=== PATIENT | female | born 1945 | race Caucasian/White ===

== ENCOUNTER 2016-12-07 15:29 | Emergency (ER) | payer MEDICARE ==
[2016-12-07] MEDS ORDERED: HYDROCODONE/APAP 5/325MG TABLET PO ONE (15:57)
--- NOTE | 2016-12-07 17:45 | Emergency Department Record ---
History of Present Illness - General Chief complaint: Pain Stated complaint: RT SIDE HIP PAIN Time Seen by Provider: 12/07/16 15:40 Source: Patient Mode of Arrival: Wheelchair Limitations: No limitations - History of Present Illness Initial comments: pt twisted r leg injuring hip causing pain and unable to bear weight. Complaint: Extremity pain, Joint pain Onset/Timin -: Hour(s) Location: Right, Other Severity scale (1-10): 9 Quality: Sharp Consistency: Constant Improves with: Nothing Worsens with: Walking, Weight bearing, Other - Related Data Home Medications Medication Instructions Recorded Confirmed Last Taken Metoprolol Succinate 50 mg PO QD tab 12/08/15 12/07/16 Unknown Pravastatin Sodium 20 mg PO QD tab 12/08/15 12/07/16 Unknown Previous Rx's Medication Instructions Recorded Hydrocodone/Acetaminophen [[place] 0.5 - 1 tab PO TID PRN #10 tab 12/07/16 5mg/325mg] Allergies Allergy/AdvReac Type Severity Reaction Status Date / Time azithromycin Allergy FLU LIKE Verified 12/07/16 15:46 SYMPTOMS Travel Screening - Travel/Exposure Within Last 30 Days Have you traveled within the last 30 days?: No Review of Systems Reviewed: No additional complaints except as noted below Constitutional: Reports: As per HPI. Denies: Chills, Fever, Malaise, Night sweats, Weakness, Weight change Eyes: Reports: As per HPI. Denies: Eye discharge, Eye pain, Photophobia, Vision change ENT: Reports: As per HPI. Denies: Congestion, Dental pain, Ear pain, Epistaxis , Hearing loss, Throat pain Respiratory: Reports: As per HPI. Denies: Cough, Dyspnea, Hemoptysis, Stridor, Wheezes Cardiovascular: Reports: As per HPI. Denies: Arrhythmia, Chest pain, Dyspnea on exertion, Edema, Murmurs, Orthopnea, Palpitations, Paroxysmal nocturnal dyspnea, Rheumatic Fever, Syncope Endocrine: Reports: As per HPI. Denies: Fatigue, Heat or cold intolerance, Polydipsia, Polyuria Gastrointestinal: Reports: As per HPI. Denies: Abdominal pain, Constipation, Diarrhea, Hematemesis, Hematochezia, Melena, Nausea, Vomiting Genitourinary: Reports: As per HPI. Denies: Abnormal menses, Discharge, Dyspareunia, Dysuria, Frequency, Hematuria, Incontinence, Retention, Urgency Musculoskeletal: Reports: As per HPI. Denies: Arthralgia, Back pain, Gout, Joint swelling, Myalgia, Neck pain Skin: Reports: As per HPI. Denies: Bruising, Change in color, Change in hair/ nails, Lesions, Pruritus, Rash Neurological: Reports: As per HPI. Denies: Abnormal gait, Confusion, Headache, Numbness, Paresthesias, Seizure, Tingling, Tremors, Vertigo, Weakness Psychiatric: Reports: As per HPI. Denies: Anxiety, Auditory hallucinations, Depression, Homicidal thoughts, Suicidal thoughts, Visual hallucinations Hematological/Lymphatic: Reports: As per HPI. Denies: Anemia, Blood Clots, Easy bleeding, Easy bruising, Swollen glands Past Medical History - SOCIAL HISTORY Smoking Status: Former smoker Alcohol Use: None Drug Use: None - RESPIRATORY Hx Respiratory Disorders: No - CARDIOVASCULAR Hx Cardio Disorders: Yes Hx Hypertension: Yes - NEURO Hx Neuro Disorders: No - GI Hx GI Disorders: No - Hx Genitourinary Disorders: No - ENDOCRINE Hx Endocrine Disorders: No - MUSCULOSKELETAL Hx Musculoskeletal Disorders: No - PSYCH Hx Psych Problems: No - HEMATOLOGY/ONCOLOGY Hx Hematology/Oncology Disorders: No Family Medical History Any Significant Family History?: No Physical Exam - General General Appearance: Alert, Oriented x3, Cooperative, Mild distress - Head Head exam: Normal inspection - Eye Eye exam: Normal appearance, PERRL, EOMI Pupils: Normal accommodation - ENT ENT exam: Normal exam, Mucous membranes moist, Normal external ear exam, Normal orophraynx Ear exam: Normal external inspection. negative: External canal tenderness Nasal Exam: Normal inspection. negative: Discharge, Sinus tenderness Mouth exam: Normal external inspection, Tongue normal Teeth exam: Normal inspection. negative: Dental caries Throat exam: Normal inspection. negative: Tonsillar erythema, Tonsillar exudate - Neck Neck exam: Normal inspection, Full ROM. negative: Tenderness - Respiratory Respiratory exam: Normal lung sounds bilaterally. negative: Respiratory distress - Cardiovascular Cardiovascular Exam: Regular rate, Normal rhythm, Normal heart sounds - GI/Abdominal GI/Abdominal exam: Soft, Normal bowel sounds. negative: Tenderness - Rectal Rectal exam: Deferred - exam: Deferred - Extremities Extremities exam: Normal inspection, Normal capillary refill, Tenderness. negative: Full ROM Image of Full Body: 1 - tender - Back Back exam: Reports: Normal inspection, Full ROM. Denies: Muscle spasm, Rash noted, Tenderness - Neurological Neurological exam: Alert, CN II-XII intact, Normal gait, Oriented X3 - Psychiatric Psychiatric exam: Normal affect, Normal mood - Skin Skin exam: Dry, Intact, Normal color, Warm Course Vital Signs 12/07/16 15:37 Temperature 98.2 F Pulse Rate 78 Respiratory 18 Rate Blood Pressure 154/74 Pulse Ox 96 Disposition Disposition: Discharge Clinical Impression: Sprain of right hip Qualifiers: Encounter type: initial encounter Qualified Code(s): S73.101A - Unspecified sprain of right hip, initial encounter Disposition: Home, Self-Care Condition: (1) Good Instructions: Hip Sprain (ED) Additional Instructions: follow up with family doctor. return sooner if worse. ice to joint.use walker if needed Prescriptions: Hydrocodone/Acetaminophen [[place] 5mg/325mg] 0.5 - 1 tab PO TID PRN #10 tab PRN Reason: Pain - General Forms: Patient Portal Access
--- NOTE | 2016-12-09 14:25 | RADIOLOGY REPORT ---
EXAM: RIGHT HIP, FOUR VIEWS HISTORY: TWISTING INJURY RIGHT HIP, RIGHT HIP PAIN. TECHNIQUE: Four views of the right hip were obtained. Comparison: None. FINDINGS: Severe osteoarthritic change of the right femoroacetabular joint with joint space narrowing and large osteophytes. No acute fracture. IMPRESSION: 1. NO ACUTE OSSEOUS ABNORMALITY OF THE RIGHT HIP. 2. SEVERE OSTEOARTHRITIC CHANGE OF THE RIGHT FEMOROACETABULAR JOINT. JOB NUMBER: [id number] MTDD
== END 2016-12-07 18:00 | disposition home or self-care (01) ==
LOC: ER 15:29
DX: S73.101A Unspecified sprain of right hip, initial encounter (principal); X50.1XXA Overexertion from prolonged static or awkward postures, initial encounter
CPT/HCPCS: 99283

== ENCOUNTER 2017-02-25 15:38 | Emergency (ER) | payer MEDICARE ==
[2017-02-25] MEDS ORDERED: 0.9 % SODIUM CHLORIDE 1,000 ML BAG IV ONE (16:06)
[2017-02-25] MEDS ORDERED: ONDANSETRON HCL IV 4 MG/2 ML VIAL IV ONE (16:06)
[2017-02-25 16:09] LABS: INFLUENZA A NEGATIVE (NEGATIVE); INFLUENZA B NEGATIVE (NEGATIVE)
[2017-02-25 16:15] LABS: BASO % 0.2 % (0-6); EOS % 0.1 % (0-6); GRAN % 76.2 % (47-80); HEMATOCRIT 33.3 % (35.0-47.0); HEMOGLOBIN 11.6 gm/dl (11.6-16.0); LYMPH % 15.3 % (16-45); MEAN CELL VOLUME 87.6 fl (81-97); MEAN CORPUSCULAR HEMOGLOBIN 30.5 pg (27-33); MEAN CORPUSCULAR HGB CONC 34.8 g/dl (32-36); MEAN PLATELET VOLUME 9.4 fl (7.4-10.4); MONO % 8.2 % (0-9); PLATELET COUNT 270 K/uL (130-400); RED CELL DISTRIBUTION WIDTH 12.4 % (11.5-14.5); WHITE BLOOD COUNT W/O DIFF 15.7 K/uL (4.2-12.2)
[2017-02-25 16:27] LABS: ALB/GLOB RATIO 1.1 (1.1-1.8); ALBUMIN 4.2 gm/dL (3.5-5.0); ALKALINE PHOSPHATASE 83 U/L (38-126); ALT/SGPT 21 U/L (9-52); ANION GAP 14.7 (7-16); AST/SGOT 23 U/L (14-36); BILIRUBIN,TOTAL 1.73 mg/dL (0.2-1.3); BLOOD UREA NITROGEN 16 mg/dL (7-17); CARBON DIOXIDE 19.3 mmol/L (22-30); CREATININE 0.7 mg/dL (0.52-1.04); EST GLOMERULAR FILTRATION RATE > 60 ml/min; GLUCOSE,RANDOM 149 mg/dL (70-110); LIPASE 52 U/L (23-300); TOTAL PROTEIN 8.1 gm/dL (6.3-8.2)
--- NOTE | 2017-02-25 16:54 | Emergency Department Record ---
History of Present Illness - General Chief complaint: Vomiting Stated complaint: VOMITING,COUGH Time Seen by Provider: 02/25/17 16:05 Source: Patient Mode of Arrival: Ambulatory Limitations: No limitations - History of Present Illness Initial comments: pt has been vomiting and having diarrhea for2 days. she also has congestion and a cough. she has no abd pain MD complaint: Diarrhea, Nausea, Vomiting Onset/Timin -: Days(s) Description of Vomiting: Other Improves with: None Worsens with: Eating Context: Other Associated Symptoms: Cough, Nausea/vomiting - Related Data Home Medications Medication Instructions Recorded Confirmed Last Taken Metoprolol Succinate 50 mg PO QD tab 12/08/15 02/25/17 02/24/17 Pravastatin Sodium 20 mg PO QD tab 12/08/15 02/25/17 02/24/17 Previous Rx's Medication Instructions Recorded Ciprofloxacin 500 mg PO BID #14 ml 02/25/17 Promethazine HCl [Phenergan] 12.5 mg PO BID #10 tablet 02/25/17 Allergies Allergy/AdvReac Type Severity Reaction Status Date / Time azithromycin Allergy FLU LIKE Verified 12/07/16 15:46 SYMPTOMS Travel Screening - Travel/Exposure Within Last 30 Days Have you traveled within the last 30 days?: No - Travel/Exposure Within Last Year Have you traveled outside the [place] in the last year?: No - Additonal Travel Details Have you been exposed to anyone with a communicable illness?: No - Travel Symptoms Symptom Screening: None Review of Systems Reviewed: No additional complaints except as noted below Constitutional: Reports: As per HPI. Denies: Chills, Fever, Malaise, Night sweats, Weakness, Weight change Eyes: Reports: As per HPI. Denies: Eye discharge, Eye pain, Photophobia, Vision change ENT: Reports: As per HPI. Denies: Congestion, Dental pain, Ear pain, Epistaxis , Hearing loss, Throat pain Respiratory: Reports: As per HPI. Denies: Cough, Dyspnea, Hemoptysis, Stridor, Wheezes Cardiovascular: Reports: As per HPI. Denies: Arrhythmia, Chest pain, Dyspnea on exertion, Edema, Murmurs, Orthopnea, Palpitations, Paroxysmal nocturnal dyspnea, Rheumatic Fever, Syncope Endocrine: Reports: As per HPI. Denies: Fatigue, Heat or cold intolerance, Polydipsia, Polyuria Gastrointestinal: Reports: As per HPI. Denies: Abdominal pain, Constipation, Diarrhea, Hematemesis, Hematochezia, Melena, Nausea, Vomiting Genitourinary: Reports: As per HPI. Denies: Abnormal menses, Discharge, Dyspareunia, Dysuria, Frequency, Hematuria, Incontinence, Retention, Urgency Musculoskeletal: Reports: As per HPI. Denies: Arthralgia, Back pain, Gout, Joint swelling, Myalgia, Neck pain Skin: Reports: As per HPI. Denies: Bruising, Change in color, Change in hair/ nails, Lesions, Pruritus, Rash Neurological: Reports: As per HPI. Denies: Abnormal gait, Confusion, Headache, Numbness, Paresthesias, Seizure, Tingling, Tremors, Vertigo, Weakness Psychiatric: Reports: As per HPI. Denies: Anxiety, Auditory hallucinations, Depression, Homicidal thoughts, Suicidal thoughts, Visual hallucinations Hematological/Lymphatic: Reports: As per HPI. Denies: Anemia, Blood Clots, Easy bleeding, Easy bruising, Swollen glands Past Medical History - SOCIAL HISTORY Smoking Status: Former smoker Alcohol Use: None Drug Use: None - RESPIRATORY Hx Respiratory Disorders: No - CARDIOVASCULAR Hx Cardio Disorders: Yes Hx Hypertension: Yes - NEURO Hx Neuro Disorders: No - GI Hx GI Disorders: No - Hx Genitourinary Disorders: No - ENDOCRINE Hx Endocrine Disorders: No - MUSCULOSKELETAL Hx Musculoskeletal Disorders: No - PSYCH Hx Psych Problems: No - HEMATOLOGY/ONCOLOGY Hx Hematology/Oncology Disorders: No Family Medical History Any Significant Family History?: No Physical Exam - General General Appearance: Alert, Oriented x3, Cooperative, Mild distress - Head Head exam: Normal inspection - Eye Eye exam: Normal appearance, PERRL, EOMI Pupils: Normal accommodation - ENT ENT exam: Normal exam, Mucous membranes dry, Normal external ear exam, Normal orophraynx Ear exam: Normal external inspection. negative: External canal tenderness Nasal Exam: Normal inspection. negative: Discharge, Sinus tenderness Mouth exam: Normal external inspection, Tongue normal Teeth exam: Normal inspection. negative: Dental caries Throat exam: Normal inspection. negative: Tonsillar erythema, Tonsillar exudate - Neck Neck exam: Normal inspection, Full ROM. negative: Tenderness - Respiratory Respiratory exam: Normal lung sounds bilaterally. negative: Respiratory distress - Cardiovascular Cardiovascular Exam: Normal rhythm, Normal heart sounds, Tachycardia - GI/Abdominal GI/Abdominal exam: Soft, Normal bowel sounds. negative: Tenderness - Rectal Rectal exam: Deferred - exam: Deferred - Extremities Extremities exam: Normal inspection, Full ROM, Normal capillary refill. negative: Tenderness - Back Back exam: Reports: Normal inspection, Full ROM. Denies: Muscle spasm, Rash noted, Tenderness - Neurological Neurological exam: Alert, CN II-XII intact, Normal gait, Oriented X3 - Psychiatric Psychiatric exam: Normal affect, Normal mood - Skin Skin exam: Dry, Intact, Normal color, Warm Course Vital Signs 02/25/17 15:50 Temperature 98.6 F Pulse Rate 120 H Respiratory 16 Rate Blood Pressure 124/73 Pulse Ox 97 Medical Decision Making - Lab Data Result diagrams: 02/25/17 16:08 02/25/17 16:08 Lab Results 02/25/17 02/25/17 02/25/17 Range/Units 15:45 16:08 16:08 WBC 15.7 H (4.2-12.2) K/uL RBC 3.80 (3.80-5.40) M/uL Hgb 11.6 (11.6-16.0) gm/dl Hct 33.3 L (35.0-47.0) % MCV 87.6 (81-97) fl MCH 30.5 (27-33) pg MCHC 34.8 (32-36) g/dl RDW 12.4 (11.5-14.5) % Plt Count 270 (130-400) K/uL MPV 9.4 (7.4-10.4) fl Gran % 76.2 (47-80) % Lymphocytes % 15.3 L (16-45) % Monocytes % 8.2 (0-9) % Eosinophils % 0.1 (0-6) % Basophils % 0.2 (0-6) % Sodium 136 (136-145) mmol/L Potassium 3.4 L (3.5-5.1) mmol/L Chloride 102 (98-107) mmol/L Carbon Dioxide 19.3 L (22-30) mmol/L Anion Gap 14.7 (7-16) BUN 16 (7-17) mg/dL Creatinine 0.7 (0.52-1.04) mg/dL Estimated GFR > 60 ml/min Random Glucose 149 H (70-110) mg/dL Calcium 9.1 (8.5-10.1) mg/dL Total Bilirubin 1.73 H (0.2-1.3) mg/dL AST 23 (14-36) U/L ALT 21 (9-52) U/L Alkaline Phosphatase 83 (38-126) U/L Total Protein 8.1 (6.3-8.2) gm/dL Albumin 4.2 (3.5-5.0) gm/dL Globulin 3.9 (1.4-4.8) gm/dL Albumin/Globulin Ratio 1.1 (1.1-1.8) Lipase 52 (23-300) U/L Influenza Type A Ag Negative (NEGATIVE) Influenza Type B Ag Negative (NEGATIVE) Disposition Disposition: Discharge Clinical Impression: Pyelonephritis, Dehydration Vomiting Qualifiers: Vomiting type: unspecified Vomiting Intractability: intractable Nausea presence : with nausea Qualified Code(s): R11.2 - Nausea with vomiting, unspecified Diarrhea Qualifiers: Diarrhea type: unspecified type Qualified Code(s): R19.7 - Diarrhea, unspecified Disposition: Home, Self-Care Condition: (2) Stable Instructions: Acute Nausea and Vomiting (ED), Dehydration (ED), Acute Diarrhea (ED), Acute Pyelonephritis (ED) Additional Instructions: follow up with family doctor. return sooner if worse. push fluids. return if unable to keep antibiotics down. Prescriptions: Ciprofloxacin 500 mg PO BID #14 ml Promethazine HCl [Phenergan] 12.5 mg PO BID #10 tablet Forms: Patient Portal Access
[2017-02-25 17:43] LABS: URINE APPEARANCE CLEAR; URINE BILIRUBIN NEGATIVE (NEGATIVE); URINE BLOOD MODERATE (NEGATIVE); URINE COLOR YELLOW; URINE GLUCOSE (UA) NEGATIVE (NEGATIVE); URINE KETONE NEGATIVE (NEGATIVE); URINE LEUKOCYTE ESTERASE MODERATE (NEGATIVE); URINE NITRITE POSITIVE (NEGATIVE)
[2017-02-25 17:46] LABS: URINE BACTERIA 3+; URINE EPITHELIAL CELLS NONE SEEN (FEW)
[2017-02-25] MEDS ORDERED: CIPROFLOXACIN LACTATE/D5W 400 MG in DEXTROSE 1 BAG IVPB ONE (18:01)
--- NOTE | 2017-03-01 08:44 | RADIOLOGY REPORT ---
EXAM: CHEST, TWO VIEWS HISTORY: DIFFICULTY IN BREATHING. TECHNIQUE: Frontal and lateral views of the chest were performed. FINDINGS: The heart size is normal. The lungs are hyperinflated. No acute type infiltrate or pleural effusion. Minimal biapical pleural thickening. There is osteopenia. IMPRESSION: 1. HYPERINFLATED LUNGS. NO ACUTE TYPE INFILTRATE OR PLEURAL EFFUSION. 2. MINIMAL BIAPICAL PLEURAL THICKENING. JOB NUMBER: [id number] [facility]
== END 2017-02-25 19:28 | disposition home or self-care (01) ==
LOC: ER 15:38
DX: N10 Acute pyelonephritis (principal); E86.0 Dehydration; R11.2 Nausea with vomiting, unspecified; R19.7 Diarrhea, unspecified
CPT/HCPCS: 99284 ×2; 96365; 96375; 83690; 85025; 80053; 81001; 87400; 83880; 71020; J0744; J2405; J7030

== ENCOUNTER 2017-02-28 18:24 | Inpatient (IN) | payer MEDICARE ==
--- NOTE | 2017-02-28 18:56 | Emergency Department Record ---
History of Present Illness - General Chief Complaint: Difficulty Breathing Stated Complaint: CHRISSY,WEAKNESS,NOT EATING Time Seen by Provider: 02/28/17 18:48 Source: Patient Mode of Arrival: Wheelchair Limitations: No limitations - History of Present Illness Initial Comments: 71 yo female returns to ED for evaluation of shortness of breath, weakness, and cough symptoms. Patient was seen 3 days ago, diagnosed with "bladder infection " and started on antibiotics. Patient reports that her symptoms have not improved at all, and reports worsening weakness symptoms. Patient denies flank pain, neck pain, or headache symptoms. Patient reports history significant for HTN, on medication currently for her symptoms. MD Complaint: Cough Onset/Timin -: Days(s) Severity: Moderate Quality: Aching Consistency: Constant Improves With: Nothing Worsens With: Nothing Known History Of: Other Context: Recent illness Associated Symptoms: Cough, Orthopnia, Pain with inspiration Treatments Prior to Arrival: None - Related Data Home Oxygen Therapy: No Home Medications Medication Instructions Recorded Confirmed Last Taken Metoprolol Succinate 50 mg PO QD tab 12/08/15 02/28/17 02/24/17 Pravastatin Sodium 20 mg PO QD tab 12/08/15 02/28/17 02/24/17 Previous Rx's Medication Instructions Recorded Ciprofloxacin 500 mg PO BID #14 ml 02/25/17 Promethazine HCl [Phenergan] 12.5 mg PO BID #10 tablet 02/25/17 Allergies Allergy/AdvReac Type Severity Reaction Status Date / Time azithromycin Allergy FLU LIKE Verified 12/07/16 15:46 SYMPTOMS Travel Screening - Travel/Exposure Within Last 30 Days Have you traveled within the last 30 days?: No Review of Systems Constitutional: Reports: Chills, Malaise, Weakness. Denies: Fever, Night sweats Eyes: Denies: Eye discharge, Eye pain ENT: Denies: Congestion, Ear pain, Epistaxis Respiratory: Reports: Cough, Dyspnea. Denies: Hemoptysis, Stridor, Wheezes Cardiovascular: Denies: Chest pain, Dyspnea on exertion Endocrine: Denies: Fatigue, Heat or cold intolerance Gastrointestinal: Denies: Abdominal pain, Nausea, Vomiting Genitourinary: Denies: Frequency, Hematuria, Incontinence, Retention Musculoskeletal: Denies: Arthralgia, Back pain, Gout, Joint swelling Skin: Denies: Bruising, Change in color Neurological: Denies: Abnormal gait, Confusion, Headache, Numbness, Tingling, Tremors Psychiatric: Denies: Anxiety Hematological/Lymphatic: Denies: Anemia, Blood Clots Past Medical History - SOCIAL HISTORY Smoking Status: Former smoker - RESPIRATORY Hx Respiratory Disorders: No - CARDIOVASCULAR Hx Cardio Disorders: Yes Hx Hypertension: Yes - NEURO Hx Neuro Disorders: No - GI Hx GI Disorders: No - Hx Genitourinary Disorders: No - ENDOCRINE Hx Endocrine Disorders: No - MUSCULOSKELETAL Hx Musculoskeletal Disorders: No - PSYCH Hx Psych Problems: No - HEMATOLOGY/ONCOLOGY Hx Hematology/Oncology Disorders: No Family Medical History Any Significant Family History?: No Physical Exam - General General Appearance: Alert, Oriented x3, Cooperative, Moderate distress Limitations: No limitations - Head Head exam: Atraumatic, Normocephalic, Normal inspection Head exam detail: negative: Abrasion, Contusion, Rhodes's sign, General tenderness, Hematoma, Laceration - Eye Eye exam: Normal appearance. negative: Conjunctival injection, Periorbital swelling, Periorbital tenderness, Scleral icterus - ENT ENT exam: Mucous membranes dry Ear exam: negative: Auricular hematoma, Auricular trauma Nasal Exam: negative: Active bleeding, Discharge, Dried blood, Foreign body Mouth exam: negative: Drooling, Laceration, Muffled voice, Tongue elevation - Neck Neck exam: Normal inspection. negative: Meningismus, Tenderness - Respiratory Respiratory exam: Wheezes (right upper/lower lung alatorre). negative: Respiratory distress, Rhonchi, Stridor - Cardiovascular Cardiovascular Exam: Normal rhythm, Normal heart sounds, Tachycardia - GI/Abdominal GI/Abdominal exam: Soft. negative: Organomegaly, Rebound, Rigid, Tenderness - Rectal Rectal exam: Deferred - exam: Deferred - Extremities Extremities exam: Normal inspection. negative: Calf tenderness, Pedal edema, Tenderness - Back Back exam: Denies: CVA tenderness (R), CVA tenderness (L) - Neurological Neurological exam: Alert, Oriented X3. negative: Motor sensory deficit - Psychiatric Psychiatric exam: Normal affect, Normal mood - Skin Skin exam: Normal color. negative: Abrasion Type of lesion: negative: abrasion Course Vital Signs 02/28/17 18:41 Temperature 99.3 F Pulse Rate 109 H Respiratory 24 Rate Blood Pressure 138/78 Pulse Ox 93 L - Reevaluation(s) Reevaluation #1: 02/28/17 19:54 Labs reviewed, WBC 14.3, Hgb 10.6. UA pending. CXR: Interval development of retro-cardiac pneumonia Will admit for further evaluation. Rocephin and Zithromax ordered for treatment of CAP. Reevaluation #2: 02/28/17 20:06 Case was discussed with Dr. Lopez, will accept admission for observation. Patient was updated on all results and the plan of care at this time. Medical Decision Making - Lab Data Result diagrams: 02/28/17 19:15 02/28/17 19:15 Disposition Disposition: Admit Clinical Impression: CAP (community acquired pneumonia) Decision to Admit: Admit from ER Decision to Admit Date: 02/28/17 Decision to Admit Time: 19:55 Forms: Patient Portal Access
[2017-02-28] MEDS ORDERED: 0.9 % SODIUM CHLORIDE 1000ML 1,000 ML IV SCH (19:00)
[2017-02-28 19:28] LABS: HEMOGLOBIN 10.6 gm/dl (11.6-16.0); MEAN CELL VOLUME 86.4 fl (81-97); MEAN CORPUSCULAR HEMOGLOBIN 29.5 pg (27-33); MEAN CORPUSCULAR HGB CONC 34.2 g/dl (32-36); MEAN PLATELET VOLUME 9.3 fl (7.4-10.4); PLATELET COUNT 341 K/uL (130-400); RED BLOOD COUNT 3.59 M/uL (3.80-5.40); RED CELL DISTRIBUTION WIDTH 12.2 % (11.5-14.5); WHITE BLOOD COUNT W/O DIFF 14.3 K/uL (4.2-12.2)
[2017-02-28 19:39] LABS: PLATELET ESTIMATE NORMAL (NORMAL)
[2017-02-28 19:43] LABS: ALBUMIN 3.9 gm/dL (3.5-5.0); ALKALINE PHOSPHATASE 89 U/L (38-126); ALT/SGPT 40 U/L (9-52); ANION GAP 11.2 (7-16); AST/SGOT 38 U/L (14-36); BILIRUBIN,TOTAL 1.48 mg/dL (0.2-1.3); BLOOD UREA NITROGEN 13 mg/dL (7-17); CARBON DIOXIDE 23.8 mmol/L (22-30); CREATININE 0.6 mg/dL (0.52-1.04); EST GLOMERULAR FILTRATION RATE > 60 ml/min; GLUCOSE,RANDOM 126 mg/dL (70-110); TOTAL PROTEIN 7.9 gm/dL (6.3-8.2)
[2017-02-28 19:52] LABS: TROPONIN I < 0.012 ng/mL (0.00-0.034)
[2017-02-28 20:05] LABS: URINE APPEARANCE CLEAR; URINE BILIRUBIN NEGATIVE (NEGATIVE); URINE BLOOD MODERATE (NEGATIVE); URINE COLOR YELLOW; URINE GLUCOSE (UA) NEGATIVE (NEGATIVE); URINE KETONE NEGATIVE (NEGATIVE); URINE LEUKOCYTE ESTERASE NEGATIVE (NEGATIVE); URINE NITRITE NEGATIVE (NEGATIVE); URINE PROTEIN TRACE (NEGATIVE)
[2017-02-28 20:17] LABS: URINE BACTERIA NONE SEEN; URINE EPITHELIAL CELLS 0 - 2 (FEW); URINE WBC 0 - 2 (0-2/hpf)
[2017-02-28] MEDS ORDERED: METOPROLOL SUCC 50 MG TABLET PO SCH (21:30)
[2017-02-28] MEDS ORDERED: AZITHROMYCIN 500 MG in 0.9 % SODIUM CHLORIDE 250ML 250 ML IVPB SCH (21:30)
[2017-02-28] MEDS ORDERED: PRAVASTATIN SODIUM 20 MG PO SCH (21:30)
[2017-02-28] MEDS ORDERED: 0.9 % SODIUM CHLORIDE 1000ML 1,000 ML IV PRN (21:30)
[2017-02-28] MEDS ORDERED: CEFTRIAXONE SODIUM 1 GM in 0.9 % SODIUM CHLORIDE 100ML 100 ML IVPB SCH (21:30)
[2017-02-28] MEDS ORDERED: IPRATROPIUM/ALBUTEROL (0.5MG/3MG) NEB INH PRN (21:30)
[2017-02-28] MEDS: ACETAMINOPHEN 500 MG TABLET PO PRN (22:53)
[2017-02-28] MEDS ORDERED: LEVOFLOXACIN/D5W 750 MG in DEXTROSE 1 BAG IVPB SCH (23:15)
--- NOTE | 2017-03-01 06:55 | History & Physical ---
History of Present Illness - Date of Service Date of Service for History & Physical: 03/01/17 - History of Present Illness Admitting Diagnosis: CAP. Dehydration. Generalized weakness History of Present Illness: 71yo female with CC of cough and shortness of breath. Patient has history of high cholesterol and was a former smoker. Patient presented to the ED with cough, chest congestion, and fatigue. She had been in to the ED several days earlier with similar symptoms but at that time was also experiencing nausea, vomiting, diarrhea and found to have UTI. she was started on antibiotics and GI symptoms improved but cough was just so bad she decided to come back. While in the Ed, patient had repeat chest XR that showed new interstitial edema with bibasilar effusions and new retrocardiac air space opacity. Her oxygen saturation was 93% on RA. Her WBC count was 14.3 and hgb stable at 10.6. UA negative for nitrites or leuk est. Patient was admitted for suspected community acquired pneumonia and abx transitioned to levaquin 750mg IV daily. 03/01/17- Patient states she is feeling much better today. She says her cough has been less frequent except when she lays flat. has not been getting much up with the cough but feels like she needs to. Says her chest feels congested. Denies runny nose, sinus congestion. No chest pain, but is feeling more fatigued than usual. No fevers or chills through the night. no history of COPD, pneumonia, CHF or kidney problems. no recent travel, hotel stays or sick contacts. PCP: Joe Travel Screening - Travel/Exposure Within Last 30 Days Have you traveled within the last 30 days?: No - Travel/Exposure Within Last Year Have you traveled outside the [place] in the last year?: No - Additonal Travel Details Have you been exposed to anyone with a communicable illness?: No - Travel Symptoms Symptom Screening: Fever (GT 100.4), Weakness, Fatigue, Chills Review of Systems Constitutional: Reports: Chills, Malaise, Weakness. Denies: Fever, Night sweats Eyes: Denies: Eye discharge, Eye pain ENT: Denies: Congestion, Ear pain, Epistaxis Respiratory: Reports: Cough, Dyspnea. Denies: Hemoptysis, Stridor, Wheezes Cardiovascular: Denies: Chest pain, Dyspnea on exertion Endocrine: Denies: Fatigue, Heat or cold intolerance Gastrointestinal: Denies: Abdominal pain, Nausea, Vomiting Genitourinary: Denies: Frequency, Hematuria, Incontinence, Retention Musculoskeletal: Denies: Arthralgia, Back pain, Gout, Joint swelling Skin: Denies: Bruising, Change in color Neurological: Denies: Abnormal gait, Confusion, Headache, Numbness, Tingling, Tremors Psychiatric: Denies: Anxiety Hematological/Lymphatic: Denies: Anemia, Blood Clots Past Medical History - SOCIAL HISTORY Smoking Status: Former smoker - RESPIRATORY Hx Respiratory Disorders: No - CARDIOVASCULAR Hx Cardio Disorders: Yes Hx Hypertension: Yes Comment:: high cholesteral - NEURO Hx Neuro Disorders: No - GI Hx GI Disorders: No - Hx Genitourinary Disorders: No Hx UTI: Yes (02-25-17 sent home on pills) - ENDOCRINE Hx Endocrine Disorders: No - MUSCULOSKELETAL Hx Musculoskeletal Disorders: No - PSYCH Hx Psych Problems: No - HEMATOLOGY/ONCOLOGY Hx Hematology/Oncology Disorders: No Family Medical History Any Significant Family History?: No Hx Anxiety: Children *Anxiety Comment: yougest dtr Hx Cancer: Father, Brother/Sister *Cancer Comment: breast CA;lung CA;leukemia Hx Dementia: Grandparents Hx Heart Disease: Children Hx HTN: Children H&P Meds/Allergies - Allergies Allergies: Allergies Allergy/AdvReac Type Severity Reaction Status Date / Time azithromycin Allergy FLU LIKE Verified 12/07/16 15:46 SYMPTOMS - Home Medications Home Medications Medication Instructions Recorded Confirmed Last Taken Metoprolol Succinate 50 mg PO QD tab 12/08/15 02/28/17 02/24/17 Pravastatin Sodium 20 mg PO QD tab 12/08/15 02/28/17 02/24/17 Metoprolol Tartrate [Metoprolol 50 mg PO BID 03/01/17 03/01/17 Unknown Tartrate] Previous Rx's Medication Instructions Recorded Ciprofloxacin 500 mg PO BID #14 ml 02/25/17 - Active Medications Active Medications: Current Medications Acetaminophen (Tylenol 500mg Tab) 1,000 mg PO Q6H PRN PRN Reason: FEVER Last Admin: 02/28/17 22:53 Dose: 1,000 mg Albuterol/Ipratropium (Duoneb) 3 ml INH RESP.Q4H PRN PRN Reason: Wheezing Sodium Chloride () 1,000 mls @ 125 mls/hr IV .Q8H PRN PRN Reason: LARGE VOLUME IV Levofloxacin/Dextrose 750 mg/ (Glucose) 150 mls @ 125 mls/hr IVPB DAILY [facility] Stop: 03/05/17 23:16 Last Admin: 02/28/17 23:19 Dose: 125 mls/hr Metoprolol Succinate (Toprol Xl) 50 mg PO QD [facility] Last Admin: 02/28/17 22:32 Dose: 50 mg Non-Formulary Medication (Pravastatin Sodium [Pravastatin Sodium]) 20 mg PO QD [facility] Last Admin: 02/28/17 22:37 Dose: Not Given Physical Exam - Vital Signs Vital Signs: Vital Signs - Last 24 Hrs Temp Pulse Pulse Resp BP BP Pulse Ox 03/01/17 05:42 98.6 F 79 18 117/62 96 03/01/17 05:38 79 96 03/01/17 00:37 99.0 F 94 H 18 118/62 95 02/28/17 22:25 91 H 95 02/28/17 21:38 100.1 F H 104 H 20 138/77 98 02/28/17 21:19 98.4 F 98 H 24 147/79 98 - General General Appearance: Alert, Oriented x3, Cooperative, No acute distress Limitations: No limitations - Head Head exam: Atraumatic, Normocephalic, Normal inspection Head exam detail: negative: Abrasion, Contusion, Rhodes's sign, General tenderness, Hematoma, Laceration - Eye Eye exam: Normal appearance. negative: Conjunctival injection, Periorbital swelling, Periorbital tenderness, Scleral icterus - ENT ENT exam: Mucous membranes dry Ear exam: negative: Auricular hematoma, Auricular trauma Nasal Exam: negative: Active bleeding, Discharge, Dried blood, Foreign body Mouth exam: negative: Drooling, Laceration, Muffled voice, Tongue elevation - Neck Neck exam: Normal inspection. negative: Meningismus, Tenderness - Respiratory Respiratory exam: Rales (crackles in right base). negative: Accessory muscle use, Prolonged expiratory, Respiratory distress, Rhonchi, Stridor, Wheezes - Cardiovascular Cardiovascular Exam: Regular rate, Normal rhythm, Normal heart sounds - GI/Abdominal GI/Abdominal exam: Soft. negative: Organomegaly, Rebound, Rigid, Tenderness - Rectal Rectal exam: Deferred - exam: Deferred - Extremities Extremities exam: Normal inspection. negative: Calf tenderness, Pedal edema, Tenderness - Back Back exam: Denies: CVA tenderness (R), CVA tenderness (L) - Neurological Neurological exam: Alert, Oriented X3. negative: Motor sensory deficit - Psychiatric Psychiatric exam: Normal affect, Normal mood - Skin Skin exam: Normal color. negative: Abrasion Type of lesion: negative: abrasion Results - Labs Result Diagrams: 03/01/17 07:54 03/01/17 07:54 - Imaging and Cardiology Chest x-ray Status: Report reviewed (interstitial edema with small bibasilar effusions. new retrocardiac air space opacity) VTE H&P Assessment - Risk for VTE Risk for VTE: Yes Risk Level: High Risk Assessment Date: 03/01/17 Risk Assessment Time: 20:12 VTE Orders Placed or Will Be Placed: Yes Plan - Inpatient Certification Inpatient Certification: risk factors: age, pneumonia, hyponatremia estimated length of stay: 48 Hours services needed: IV antibiotics, respiratory therapy 03/01/17 20:12 03/01/17 20:18 - Detailed Diagnosis and Plan (1) CAP (community acquired pneumonia) Current Visit: Yes Status: Acute Base Code: J18.9 - PNEUMONIA, UNSPECIFIED ORGANISM Comment: 03/01/17- Improving symptomatically today. decreased cough and shortness of breath. oxygen saturation at 96% on room air. WBc count down to 10.2 from 14.3 but may be dilutional. patient remains afebrile. CXR showing retrocardiac opacity. -legionella antigen ordered with recent GI symptoms as well -continue levaquin 750mg IV q24H -continue duoneb treatemnts q4H prn sob per RT -vitals q8H -repeat labs qam (2) Hyponatremia Current Visit: Yes Status: Acute Base Code: E87.1 - HYPO-OSMOLALITY AND HYPONATREMIA Comment: 03/01/17- resolved. sodium up from 129 to 136 following fluid resuscitation with NS. -will saline lock -recheck labs qam (3) Full code status Current Visit: Yes Status: Acute Base Code: Z78.9 - OTHER SPECIFIED HEALTH STATUS Comment: 03/01/17- patient is full code (4) DVT prophylaxis Current Visit: Yes Status: Acute Base Code: [id number] - Comment: 03/01/17- patient is at high risk with age and restricted mobility. Hgb did drop from 10.2 to 9.7 but suspect this is dilutional. no obvious source of bleed. -will do lovenox 40mg sq daily for prophylaxis
[2017-03-01 08:03] LABS: BASO % 0.5 % (0-6); EOS % 0.7 % (0-6); GRAN % 65.2 % (47-80); HEMATOCRIT 28.7 % (35.0-47.0); HEMOGLOBIN 9.7 gm/dl (11.6-16.0); LYMPH % 19.6 % (16-45); MEAN CELL VOLUME 88.3 fl (81-97); MEAN CORPUSCULAR HEMOGLOBIN 29.8 pg (27-33); MEAN CORPUSCULAR HGB CONC 33.8 g/dl (32-36); MEAN PLATELET VOLUME 9.4 fl (7.4-10.4); PLATELET COUNT 275 K/uL (130-400); RED BLOOD COUNT 3.25 M/uL (3.80-5.40); RED CELL DISTRIBUTION WIDTH 12.2 % (11.5-14.5); WHITE BLOOD COUNT W/O DIFF 10.2 K/uL (4.2-12.2)
[2017-03-01 08:11] LABS: ALB/GLOB RATIO 0.9 (1.1-1.8); ALBUMIN 3.2 gm/dL (3.5-5.0); ALKALINE PHOSPHATASE 71 U/L (38-126); ALT/SGPT 30 U/L (9-52); ANION GAP 7.6 (7-16); AST/SGOT 31 U/L (14-36); BILIRUBIN,TOTAL 0.97 mg/dL (0.2-1.3); BLOOD UREA NITROGEN 10 mg/dL (7-17); CARBON DIOXIDE 25.4 mmol/L (22-30); CREATININE 0.7 mg/dL (0.52-1.04); EST GLOMERULAR FILTRATION RATE > 60 ml/min; GLUCOSE,RANDOM 116 mg/dL (70-110); TOTAL PROTEIN 6.8 gm/dL (6.3-8.2)
--- NOTE | 2017-03-01 08:46 | RADIOLOGY REPORT ---
EXAM: CHEST, TWO VIEWS HISTORY: COUGH. TECHNIQUE: Frontal and lateral views of the chest were obtained. Comparison: 02/25/17 chest. FINDINGS: The heart size is normal. Osteopenia. Underlying COPD. Interval development of interstitial edema with fluid tracking into the right minor fissure. New retrocardiac air space opacity. Small bibasilar effusions. IMPRESSION: INTERVAL DEVELOPMENT OF INTERSTITIAL EDEMA WITH SMALL BIBASILAR EFFUSIONS. NEW RETROCARDIAC AIR SPACE OPACITY WORRISOME FOR PNEUMONIA. FOLLOW-UP RECOMMENDED. JOB NUMBER: [id number] [facility]
[2017-03-01] MEDS: METOPROLOL TART 50 MG TABLET PO SCH ×2 (11:08→22:02)
[2017-03-01] MEDS: GUAIFENESIN 1,200 MG TABLET PO SCH ×2 (14:16→22:02)
[2017-03-01] MEDS ORDERED: TEMAZEPAM 15 MG CAPSULE PO PRN (20:03)
[2017-03-01] MEDS ORDERED: PRAVASTATIN SODIUM 20 MG PO SCH (22:00)
[2017-03-01] MEDS ORDERED: LEVOFLOXACIN/D5W 750 MG in DEXTROSE 1 BAG IVPB SCH (22:00)
[2017-03-01] MEDS: ACETAMINOPHEN 500 MG TABLET PO PRN (22:02)
[2017-03-02 06:57] LABS: HEMATOCRIT 30.6 % (35.0-47.0); HEMOGLOBIN 10.2 gm/dl (11.6-16.0); MEAN CELL VOLUME 89.5 fl (81-97); MEAN CORPUSCULAR HEMOGLOBIN 29.8 pg (27-33); MEAN CORPUSCULAR HGB CONC 33.3 g/dl (32-36); MEAN PLATELET VOLUME 9.8 fl (7.4-10.4); PLATELET COUNT 315 K/uL (130-400); RED BLOOD COUNT 3.42 M/uL (3.80-5.40); RED CELL DISTRIBUTION WIDTH 12.5 % (11.5-14.5); WHITE BLOOD COUNT W/O DIFF 10.1 K/uL (4.2-12.2)
[2017-03-02 07:10] LABS: PLATELET ESTIMATE NORMAL (NORMAL)
[2017-03-02 07:11] LABS: ALB/GLOB RATIO 0.9 (1.1-1.8); ALBUMIN 3.3 gm/dL (3.5-5.0); ALKALINE PHOSPHATASE 70 U/L (38-126); ALT/SGPT 35 U/L (9-52); ANION GAP 8.9 (7-16); AST/SGOT 29 U/L (14-36); BILIRUBIN,TOTAL 1.02 mg/dL (0.2-1.3); BLOOD UREA NITROGEN 9 mg/dL (7-17); CARBON DIOXIDE 26.1 mmol/L (22-30); CREATININE 0.6 mg/dL (0.52-1.04); EST GLOMERULAR FILTRATION RATE > 60 ml/min; GLUCOSE,RANDOM 115 mg/dL (70-110); TOTAL PROTEIN 6.9 gm/dL (6.3-8.2)
--- NOTE | 2017-03-02 07:43 | Discharge Summary ---
Providers Discharge Summary Date: 03/02/17 Date of admission: 02/28/17 21:15 Expected Date of Discharge: 03/02/17 Attending physician: YODIT GARZA Primary care physician: FIONA RUDD Physical Exam - Vital Signs Vital Signs: Vital Signs - Last 24 Hrs Temp Pulse Resp BP Pulse Ox 03/02/17 06:00 98.6 F 75 18 120/66 95 03/02/17 05:56 95 03/01/17 21:58 99.9 F H 96 H 16 130/82 92 L 03/01/17 21:55 92 L 03/01/17 18:00 97 H 20 136/69 96 03/01/17 14:00 99.6 F 88 18 133/65 92 L 03/01/17 08:50 98.6 F 79 18 125/65 96 03/01/17 08:38 79 18 - General General Appearance: Alert, Oriented x3, Cooperative, No acute distress Limitations: No limitations - Head Head exam: Atraumatic, Normocephalic, Normal inspection Head exam detail: negative: Abrasion, Contusion, Rhodes's sign, General tenderness, Hematoma, Laceration - Eye Eye exam: Normal appearance. negative: Conjunctival injection, Periorbital swelling, Periorbital tenderness, Scleral icterus - ENT ENT exam: Mucous membranes dry Ear exam: negative: Auricular hematoma, Auricular trauma Nasal Exam: negative: Active bleeding, Discharge, Dried blood, Foreign body Mouth exam: negative: Drooling, Laceration, Muffled voice, Tongue elevation - Neck Neck exam: Normal inspection. negative: Meningismus, Tenderness - Respiratory Respiratory exam: Rales (crackles in right base). negative: Accessory muscle use, Prolonged expiratory, Respiratory distress, Rhonchi, Stridor, Wheezes - Cardiovascular Cardiovascular Exam: Regular rate, Normal rhythm, Normal heart sounds - GI/Abdominal GI/Abdominal exam: Soft. negative: Organomegaly, Rebound, Rigid, Tenderness - Rectal Rectal exam: Deferred - exam: Deferred - Extremities Extremities exam: Normal inspection. negative: Calf tenderness, Pedal edema, Tenderness - Back Back exam: Denies: CVA tenderness (R), CVA tenderness (L) - Neurological Neurological exam: Alert, Oriented X3. negative: Motor sensory deficit - Psychiatric Psychiatric exam: Normal affect, Normal mood - Skin Skin exam: Normal color. negative: Abrasion Type of lesion: negative: abrasion Hospitalization - Hospitalization Admission Diagnosis: CAP. Dehydration. Generalized weakness - Problem List/Discharge Diagnosis (1) CAP (community acquired pneumonia) Current Visit: Yes Status: Acute Base Code: J18.9 - PNEUMONIA, UNSPECIFIED ORGANISM Comment: 03/02/17-continues to improve. CXR showed retrocardiac opacity. Denies any SOB and says cough is much less frequent. oxygen saturation at 94% on room air. WBC stable at 10.1 down from 14.3 at admission. patient remains afebrile. Legionella antigen still pending. -continue levaquin 500mg po daily for 7 more days. -tessalon perles for cough suppression at bedtime -continue mucinex 1200mg po bid. will send script to pharmacy -will also send albuterol inhaler 1-2 puffs q4H prn SOB -follow up with Dr. Rudd in the next 5-7 days. (2) Hyponatremia Current Visit: Yes Status: Acute Base Code: E87.1 - HYPO-OSMOLALITY AND HYPONATREMIA Comment: 03/02/17- resolved. sodium stable at 138 today. Saline locked yesterday. (3) Full code status Current Visit: Yes Status: Acute Base Code: Z78.9 - OTHER SPECIFIED HEALTH STATUS Comment: 03/02/17- patient is full code (4) DVT prophylaxis Current Visit: Yes Status: Acute Base Code: [id number] - Comment: 03/02/17- patient was at high risk with age and restricted mobility. Hgb stable at 10.6 today. -lovenox 40mg daily was given for prophylaxis - Hospitalization Course Disposition: Home, Self-Care Hospital Course: 71yo female with CC of cough and shortness of breath. Patient has history of high cholesterol and was a former smoker. Patient presented to the ED with cough, chest congestion, and fatigue. She had been in to the ED several days earlier with similar symptoms but at that time was also experiencing nausea, vomiting, diarrhea and found to have UTI. she was started on antibiotics and GI symptoms improved but cough was just so bad she decided to come back. While in the Ed, patient had repeat chest XR that showed new interstitial edema with bibasilar effusions and new retrocardiac air space opacity. Her oxygen saturation was 93% on RA. Her WBC count was 14.3 and hgb stable at 10.6. UA negative for nitrites or leuk est. Patient was admitted for suspected community acquired pneumonia and abx transitioned to levaquin 750mg IV daily. 03/01/17- Patient states she is feeling much better today. She says her cough has been less frequent except when she lays flat. has not been getting much up with the cough but feels like she needs to. Says her chest feels congested. Denies runny nose, sinus congestion. No chest pain, but is feeling more fatigued than usual. No fevers or chills through the night. no history of COPD, pneumonia, CHF or kidney problems. no recent travel, hotel stays or sick contacts. 03/02/17- Patient continues to improve. She says she is no longer short of breath. She slept great last night and feels like she has a lot more energy today. appetite has improved as well. Ate all of her breakfast. She does still have some occasional cough but frequency is decreased. not productive of sputum. denies chest pain, fever, chills, pain with inspiration. Patient is feeling ready to go home PCP: Tobin Abnormal Labs: Abnormal Lab Results 03/01/17 03/01/17 03/02/17 Range/Units 07:54 07:54 05:55 RBC 3.25 L 3.42 L (3.80-5.40) M/uL Hgb 9.7 L 10.2 L (11.6-16.0) gm/dl Hct 28.7 L 30.6 L (35.0-47.0) % Monocytes % 14.0 H 13.0 H (0-9) % Random Glucose 116 H (70-110) mg/dL Albumin 3.2 L (3.5-5.0) gm/dL Albumin/Globulin Ratio 0.9 L (1.1-1.8) 03/02/17 Range/Units 05:55 RBC (3.80-5.40) M/uL Hgb (11.6-16.0) gm/dl Hct (35.0-47.0) % Monocytes % (0-9) % Random Glucose 115 H (70-110) mg/dL Albumin 3.3 L (3.5-5.0) gm/dL Albumin/Globulin Ratio 0.9 L (1.1-1.8) Condition at Discharge: (2) Stable Discharge Medications - Discharge Medications Prescriptions: Guaifenesin [Guaifenesin ER] 1,200 mg PO Q12HR #20 tab.er.12h Levofloxacin [Levaquin Tab] 500 mg PO DAILY #7 tab Benzonatate [Tessalon] 2 cap PO Q8H PRN #30 cap PRN Reason: Cough Albuterol Sulfate [Ventolin Hfa] 1 - 2 puff IH .EVERY 4-6 HOURS PRN #1 inhaler PRN Reason: Difficulty In Breathing Home Medications: Ambulatory Orders Pravastatin Sodium 20 mg PO QD tab 12/08/15 [Last Taken 02/24/17] Metoprolol Tartrate 50 mg PO BID 03/01/17 [Last Taken Unknown] Albuterol Sulfate [Ventolin Hfa] 1 - 2 puff IH .EVERY 4-6 HOURS PRN #1 inhaler 03/02/17 [Last Taken Unknown] Benzonatate [Tessalon] 2 cap PO Q8H PRN #30 cap 03/02/17 [Last Taken Unknown] Guaifenesin [Guaifenesin ER] 1,200 mg PO Q12HR #20 tab.er.12h 03/02/17 [Last Taken Unknown] Levofloxacin [Levaquin Tab] 500 mg PO DAILY #7 tab 03/02/17 [Last Taken Unknown] Discharge Plan - Discharge Instructions Activity at Discharge: Resume Usual Activities As Tolerated Diet at Discharge: Regular Diet Additional Instructions: Please call Dr. Rudd to schedule follow up appointment in the next 5-7 days Continue Levaquin 500mg tonight for the next 7 days May use the tessalon perles for cough suppression May use the albuterol inhaler 1-2 puffs every 4 hours as needed for shortness of breath Continue mucinex 1200mg twice daily Please return to ED at any time if you have new or worsening symptoms including progressive fatigue, shortness of breath or fever.
[2017-03-02] MEDS: GUAIFENESIN 1,200 MG TABLET PO SCH (09:53)
[2017-03-02] MEDS: METOPROLOL TART 50 MG TABLET PO SCH (09:53)
== END 2017-03-02 13:40 | disposition home or self-care (01) | DRG 194 ==
LOC: ER 18:24 → OBSVTOIN 21:15 → MEDSURG 21:15
PROVIDERS: ADMIT Family Medicine; ATTEND Family Medicine
DX: J18.9 Pneumonia, unspecified organism (principal); E87.1 Hypo-osmolality and hyponatremia; Z78.9 Other specified health status; I10 Essential (primary) hypertension; Z87.891 Personal history of nicotine dependence
CPT/HCPCS: 71020; 80053; 81001; 84484; 85025; 85027; 87449; 94760; 94761; 99223; 99239; 99285; J1956; J7030